=== PATIENT | male | born 1950 | race African-American/Black ===

== ENCOUNTER 2021-12-25 11:37 | Emergency (ER) | payer OTHER ==
[2021-12-25 12:52] LABS: BASOPHIL 0.3 % (0-2); EOSINOPHIL 1.2 % (0-7); HCT 40.8 % (42.0-52.0); HGB 12.6 g/dl (13.2-18.0); LYMPHOCYTE 22.5 % (15-48); MCH 25.7 pg (25.0-31.0); MCHC 30.9 g/dL (32.0-36.0); MCV 83.1 fL (78.0-100.0); MONOCYTE 12.9 % (0-12); NEUTROPHIL 62.8 % (41-80); NRBC 0; PLT 239 K/uL (150-400); RBC 4.91 M/uL (4.70-6.00); RDW 14.3 % (11.5-14.0)
[2021-12-25 13:05] LABS: BUN/CREAT RATIO (CALC) 14.4 RATIO; CREATININE 1.18 mg/dL (0.67-1.17); POTASSIUM 3.6 mmol/L (3.5-5.1)
== END 2021-12-25 14:17 | disposition home or self-care (01) ==
LOC: FER 11:37
PROVIDERS: Nurse Practitioner Family
DX: K21.9 Gastro-esophageal reflux disease without esophagitis (principal); K22.4 Dyskinesia of esophagus; I10 Essential (primary) hypertension; Z86.73 Personal history of transient ischemic attack (TIA), and cerebral infarction without residual deficits; Z88.0 Allergy status to penicillin; Z79.899 Other long term (current) drug therapy
CPT/HCPCS: 36415; 71045; 80048; 85025; 93005